=== PATIENT | female | born 2000 | race Caucasian/White ===

== ENCOUNTER 2021-09-08 15:18 | Emergency (ER) | payer MEDICAID ==
[~2021-09-08] VITALS: Ht 149.9 cm; Wt 58.0 kg
[2021-09-08 15:24] VITALS: BP 124/91
[2021-09-08] MEDS ORDERED: SILVER SULFADIAZINE 1% CREAM 25GM TOP ONE (16:30)
[2021-09-08] MEDS ORDERED: BACITRACIN ZINC OINT UDPKT TOP ONE (16:30)
[2021-09-08] MEDS ORDERED: LIDOCAINE HCL/PF 1% 10 MG/ML 5ML VIAL INFIL ONE (16:30)
[2021-09-08] MEDS ORDERED: IBUP-2029 MT (17:04)
[2021-09-08] MEDS ORDERED: CEPH500C2 MT (17:06)
== END 2021-09-08 17:42 | disposition home or self-care (01) ==
LOC: ER 15:18
DX: S01.312A Laceration without foreign body of left ear, initial encounter (principal); S61.307A Unspecified open wound of left little finger with damage to nail, initial encounter; Z87.19 Personal history of other diseases of the digestive system; X58.XXXA Exposure to other specified factors, initial encounter; Y93.89 Activity, other specified; Y92.018 Other place in single-family (private) house as the place of occurrence of the external cause
CPT/HCPCS: 12013; 73140; 99283; J3490

== ENCOUNTER 2021-09-11 22:43 | Emergency (ER) | payer MEDICAID ==
[~2021-09-11] VITALS: Ht 147.3 cm; Wt 57.0 kg
[~2021-09-11 22:43] MED LIST: CEPH500C2 MT; IBUP-2029 MT
[2021-09-12 01:15] VITALS: BP 118/77
== END 2021-09-12 01:15 | disposition home or self-care (01) ==
LOC: ER 22:43
DX: Z48.00 Encounter for change or removal of nonsurgical wound dressing (principal); S01.31 Laceration without foreign body of ear; X58.XXXD Exposure to other specified factors, subsequent encounter
CPT/HCPCS: 99281

== ENCOUNTER 2021-09-16 23:42 | Emergency (ER) | payer MEDICAID ==
[~2021-09-16] VITALS: Ht 147.3 cm; Wt 63.7 kg
[2021-09-17 00:03] VITALS: BP 120/75
== END 2021-09-17 03:55 | disposition home or self-care (01) ==
LOC: ER 23:42
DX: Z48.02 Encounter for removal of sutures (principal); Z87.19 Personal history of other diseases of the digestive system
CPT/HCPCS: 99281